=== PATIENT | female | born 1970 | race Caucasian/White ===

== ENCOUNTER 2017-11-19 08:30 | Outpatient (CLI) | payer OTHER ==
--- NOTE | 2017-11-19 11:17 | CT ---
CT OF THE INTERNAL AUDITORY CANALS WITH AND WITHOUT CONTRAST: HISTORY: Complete left ear hearing loss x 30 years. Evaluate for mass and swelling. COMPARISON: None. TECHNIQUE: A pre- and postcontrast IC/temporal bone CT is performed. Coronal reformatted images are submitted f or interpretation. FINDINGS: The visualized brain parenchyma is unremarkable. There is adequate aeration of the visualized paranasal sinuses. There is no pathologic enhancement o f the visualized brain parenchyma. Right ICA/Temporal Bone: The internal auditory canal, cochlea, vestibule, and semicircular canals have an appropriate appearan ce and configuration. Vestibular aqueduct is not enlarged. The tegmen tympani and tegmen mastoideum are preserved. Ossicular chain is intact. Stapedial footpl ate is appropriately located. Adequate aeration of the mastoid air cells. Interosseous septate of t he mastoid air cells are preserved. Tympanic membrane is unremarkable. External auditory canal is p atent. Left ICA/Temporal Bone: There is an enhancing mass in the left temporal bone just posterior to the external auditory canal. This enhancing focus is contiguous with the left jugular vein. This defect within the left temporal bone measures 1.5 cm mediolateral x 1.1 cm anterior posterior. This abnormal area of enhancement ext ends into the cochlear promontory. As stated above, a portion of this mass does abut the external au ditory canal. There is opacification of the left mastoid air cells with destruction of the interosse ous septae. Tegmen tympani and tegmen mastoideum appear to be preserved. Abnormal soft tissue densi ty medial to the ossicular chain. The left ossicular chain appears to be intact. Stapedial footplat e is unremarkable. There is blunting of the scutum. A small amount of hypodensity in Prussak's space is noted. IMPRESSION: 1. Enhancing mass along the left jugular foramen. Findings may be due to jugular dehisience and ext ension into the inferior left middle ear. 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 MRI with and without gadolinium is recommended. 2, Abnormal soft tissue density medial to the left ossicular chain. 3. Abnormal soft tissue density in the left mastoid air cells. POS: [facility]
[2017-11-19] MEDS ORDERED: Iopamidol 370 76% 100 ML VIAL ONE (13:24)
== END 2017-11-19 08:31 | disposition home or self-care (01) ==
LOC: SCSCT 08:30 → CT 08:31
PROVIDERS: ATTEND Otolaryngology Plastic Surgery within the Head & Neck
DX: R22.0 Localized swelling, mass and lump, head (principal)
CPT/HCPCS: 70482

== ENCOUNTER 2017-11-27 15:31 | Outpatient (CLI) | payer OTHER ==
[~2017-11-27 15:31] MED LIST: Magnevist 469MG/ML 20 ML VIAL ONE
--- NOTE | 2017-11-27 18:40 | MRI ---
BRAIN MRI WITH AND WITHOUT CONTRAST 11/27/17 CLINICAL HISTORY: Hearing loss. Reference made to IC CT exam, 11/19/17. FINDINGS: There is a high riding left jugular bulb with encroachment upon the left middle ear. This does corres ponds to CT findings and is indicative of a dehiscent left jugular bulb. There is adjacent mastoid ai r cell opacification which corresponds to the prior CT findings. This may relate to sequela from coal escent mastoiditis. Correlate clinically in this regard. Incidental note of a prominent cystic mass-like configuration within the partially imaged cervical sp inal cord, incompletely evaluated. Cephalad to this finding there is prominent degenerative disc dise ase which results in mass effect upon the upper cervical spinal cord. There is also degenerative hype rtrophy at the atlantodental articulation with crowding of the cervicomedullary junction. Findings hill ggest a congenital anomaly of the imaged skull base and cervical spine osseous structures. No significant signal abnormality of the brain parenchyma. There is no acute territorial infarction, mass effect or midline shift. Incidentally noted is a retention cyst formation at the medial right ma xillary sinus. IMPRESSION: 1. Findings most consistent with dehiscent left jugular bulb. There is adjacent mastoid effusion which may relate to sequela from coalescent mastoiditis given the prior CT appearance. Correlate cli nically. 2. Incidental note of cystic mass-like prominence of the imaged cervical spinal cord at the infe rior aspect. This finding is incompletely visualized. Finding could relate to a prominent region of h ydrosyringomyelia with associated cord parenchymal attenuation and expansion, although the possibilit y of a cystic intramedullary mass is not excluded. Followup with pre and postcontrast cervical spine MRI is warranted to further evaluate. Imaging of the thoracic spine may also be obtained concurrently . 3. Additional details are described above. Telephone call of findings placed to patient's physician Ra Crouch at 1702 hours, 11/27/17. Code CR POS: [facility]
== END 2017-11-27 15:32 | disposition home or self-care (01) ==
LOC: SCSMRI 15:31
PROVIDERS: ATTEND Otolaryngology Plastic Surgery within the Head & Neck
DX: H90.A21 Sensorineural hearing loss, unilateral, right ear, with restricted hearing on the contralateral side (principal)
CPT/HCPCS: 70553; A9579